=== PATIENT | female | born 2000 | race Caucasian/White ===

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

== ENCOUNTER 2018-11-14 06:42 | Inpatient (IN) ==
[2018-11-14] MEDS ORDERED: LACTATED RINGER'S 1,000 ML IV PRN ×3 (07:31→12:38)
[2018-11-14] MEDS ORDERED: OXYTOCIN 30 UNITS/500 ML BAG IV PRN ×3 (07:31→20:23)
[2018-11-14] MEDS ORDERED: LACTATED RINGER'S 1,000 ML IV SCH (07:45)
[2018-11-14 07:51] LABS: Hematocrit (blood only) 35.6 % (37-47); Hemoglobin 11.7 g/dL (12.0-16.0); Mean Corpuscular Volume 76.6 fL (80-100); Mean Platelet Volume 9.7 fL (7.4-10.4); Platelet Count 218 K/uL (130-400); RDW Coefficient of Variation 14.7 % (11.5-14.5); RDW Standard Deviation 41.2 fL (36.4-46.3); Red Blood Count 4.65 M/uL (4.2-5.4)
[2018-11-14 08:00] LABS: Mean Corpuscular Hgb Conc 32.9 g/dL (32-36)
--- NOTE | 2018-11-14 08:43 | History & Physical Report ---
Date of Service November 14, 2018 Assessment & Plan (1) 38 weeks gestation of : Selena Thurston is a 18 year old, , [place] 38.6 weeks, with EDC of 11/22/18 via LMP on 02/15/18, GBS-, O+, MMR Immune, Varicella immune, VDRL unreactive, with uncomplicated . - Pain management plan is for epidural - will await for epidural prior to rupturing membranes - continue routine labor care - plan for History of Present Illness Chief Complaint: Labor Primary Care Provider: NO PCP Selena Thurston is a 18 year old, , [place] 38.6 weeks, with EDC of 11/22/18 via LMP on 02/15/18, GBS-, O+, MMR Immune, Varicella immune, VDRL unreactive, with uncomplicated . She awoke with pain from contractions last night and came here to the L&D with admission. She denies any recent illness, fever, chills, chest pain, shortness of breath, nausea, vomiting, diarrhea. Her pain management plan is for an epidural. Allergies Allergy/AdvReac Type Severity Reaction Status Date / Time No Known Allergies Allergy Unverified 12/09/10 16:18 Home Medications Home Medications Medication Instructions Recorded Confirmed Type PNV cmb#95-ferrous fumarate-FA 1 tab PO DAILY 11/14/18 11/14/18 History [] Patient History Medical History No known health problems Surgical History History of tonsillectomy Family History Other Hypertension Social History Preferred Language: Iraqi Beliefs That Will Affect Care: None marital status: Single Current Living Situation: Family Feels Safe at Home: Yes Safety Concerns: Feels Safe At This Time Smoking Status: Never smoker Hx Alcohol Use: No Hx Substance Use: No OB History at 38.6 weeks gestation [employer] IN History No history of abnormal paps or STDs. Review of Systems All systems reviewed & are unremarkable except as noted in HPI & below Physical Exam Vital Signs (Past 24 Hours): Last Vital Signs Temp 36.5 C 11/14/18 07:01 Pulse 104 H 11/14/18 07:01 Resp 18 11/14/18 07:01 BP 111/65 11/14/18 07:01 Constitutional: WD/WN, vitals as above cooperative Eyes: + anicteric sclerae and EOM intact bilaterally Neck: normal visual inspection and trachea midline Respiratory: normal respiratory effort, lungs clear to auscultation Cardiovascular: RRR, no murmur, no edema Gastrointestinal (Abdomen): Percussion/Palpation: abdomen nontender gravid uterus Musculoskeletal: Head/Neck/Chest: normocephalic and head atraumatic Skin: no rashes, warm and dry Neurologic: moves all extremities and awake Psychiatric: A+Ox3, euthymic affect Genitourinary: OB Exam Monitor Tracing: + external FHT monitor used, + category I and + normal FHT variability cervix examined by Dr. Coronado attending and noted to be 5cm/90%/-1 with membranes intact. EFM: Baseline 130 w/moderate variability, accels present, no decels Tocodynameter: mild irregular contractions Results & Data Laboratory Results Laboratory Results - last 24 hr 11/14/18 07:38 WBC 15.40 H RBC 4.65 Hgb 11.7 L Hct 35.6 L MCV 76.6 L MCH 25.2 MCHC 32.9 RDW Std Deviation 41.2 RDW Coeff of Jesus Manuel 14.7 H Plt Count 218 MPV 9.7 Medications Administered Lactated Ringer's (Lr) 1,000 mls @ 999 mls/hr IV .Q1H1M PRN PRN Reason: (Pre-Anesthesia) Stop: 12/14/18 07:30 Last Admin: 11/14/18 08:00 Dose: 999 mls/hr Documented by: [id number] Code Status & VTE Plan Code Status full Supervising Physician Co-Signing Physician Notes Patient seen and agree with the above findings and plan
[2018-11-14] MEDS ORDERED: ePHEDrine sulfate 50 MG/ML AMP ONE (08:44)
[2018-11-14] MEDS ORDERED: fentaNYL citrate 100 MCG/2 ML VIAL ONE (08:44)
[2018-11-14] MEDS ORDERED: BUPIVACAINE 0.25% 30 ML VIAL ONE (08:44)
[2018-11-14] MEDS ORDERED: fentaNYL 2MCG/ML ROPIV 1.25MG/ML 100 ML BAG EPI ONE (08:45)
[2018-11-14] MEDS ORDERED: NALOXONE HCL 1 MG in SODIUM CHLORIDE 0.9% 1000ML 1,000 ML IV PRN (09:51)
[2018-11-14] MEDS ORDERED: PROMETHAZINE HCL 6.25 MG in SODIUM CHLORIDE 0.9% 50 ML IV PRN (09:51)
[2018-11-14] MEDS ORDERED: ePHEDrine sulfate 50 MG/ML AMP IV PRN (09:51)
[2018-11-14] MEDS ORDERED: NALBUPHINE HCL INJ 10 MG/ML AMP IV PRN (09:51)
[2018-11-14] MEDS ORDERED: ONDANSETRON INJ 2 MG/ML 2 ML VIAL IV PRN (09:51)
[2018-11-14] MEDS ORDERED: NALOXONE HCL 0.4 MG/1 ML VIAL/CARP IV PRN (09:51)
[2018-11-14] MEDS ORDERED: DiphenhydrAMINE HCL 50 MG/ML VIAL IV PRN (09:51)
[2018-11-14] MEDS ORDERED: fentaNYL 2MCG/ML ROPIV 1.25MG/ML 100 ML BAG EPI PRN (09:51)
--- NOTE | 2018-11-14 09:51 | Anesthesiology Consultation ---
Date of Service November 14, 2018 @ 38.6 Assessment & Plan (1) Encounter for pre-operative examination: Chart Review Chart Review: Patient NOT seen in Pre Admission Testing and Acceptable Risk for Labor Epidural Consults Requested none ASA ASA2 Proposed Anesthesia Anesthesia Type: Labor Epidural Risk / Benefits Reviewed With: PT / POA / Parent / Guardian, Accepts Plan and Informed Consent Obtained NPO Date Last Intake of Fluids: 11/14/18 Time Last Intake of Fluids: 03:30 Date Last Intake of Solids: 11/13/18 Time Last Intake of Solids: 20:00 History Height/Weight Height: 5 ft 3 in Weight: 83.007 kg Allergies Allergy/AdvReac Type Severity Reaction Status Date / Time No Known Allergies Allergy Unverified 12/09/10 16:18 Medications Home Medications Medication Instructions Recorded Confirmed Last Taken PNV cmb#95-ferrous fumarate-FA 1 tab PO DAILY 11/14/18 11/14/18 11/13/18 [] Active Medications Generic Name Dose Route Start Last Admin Trade Name Freq PRN Reason Stop Dose Admin Lactated Ringer's 1,000 mls @ 999 mls/hr 11/14/18 07:31 11/14/18 08:49 Lr IV 12/14/18 07:30 Infused .Q1H1M PRN Infusion (Pre-Anesthesia) Lactated Ringer's 1,000 mls @ 125 mls/hr 11/14/18 07:45 11/14/18 08:49 Lr IV 11/16/18 07:44 125 mls/hr .Q8H PRICILA Administration Past Medical History Medical History No known health problems Past Family History Family History Other Hypertension Past Surgical History Surgical History History of tonsillectomy Social History Smoking Status: Never smoker Hx Alcohol Use: No Hx Substance Use: No Physical Exam Vital Signs Last Vital Signs Temp 36.5 C 11/14/18 07:01 Pulse 126 H 11/14/18 09:49 Resp 18 11/14/18 07:01 BP 112/59 L 11/14/18 09:49 Pulse Ox 98 11/14/18 09:48 ENMT Mouth: no TMJ abnormality Thyromental Distance: > or= 3.5 Finger Breadths Mallampati Class: II Neck normal visual inspection Respiratory normal respiratory effort Cardiovascular Rate/Rhythm: regular rate and regular rhythm Neurologic moves all extremities Psychiatric Orientation: alert Testing Laboratory Results 11/14/18 07:38
--- NOTE | 2018-11-14 10:22 | Obstetrical Progress Note ---
Date of Service November 14, 2018 Assessment & Plan (1) 38 weeks gestation of : good cx change, will see how arom helps labor pattern. fhts categ 1. pt and family aware I am taking over care. Subjective pt now comfortable with epidural. aware i am assuming care. Physical Exam Vital Signs (Past 24 Hours): Last Vital Signs Temp 36.5 C 11/14/18 07:01 Pulse 131 H 11/14/18 10:18 Resp 18 11/14/18 10:00 BP 118/69 11/14/18 10:13 Pulse Ox 93 11/14/18 10:18 Constitutional: WD/WN, vitals as above Genitourinary: OB Exam Abdomen: + estimated weight (7-8#) Manual OB Exam: + cervical dilation 7 cm, + cervical effacement 100%, + station 0 and + amniotic fluid (arom) clear OB Exam Monitor Tracing: + external FHT monitor used (140 moderate variability, ), + external uterine monitor used (q2-3), + category I and + normal FHT variability
[2018-11-14] MEDS ORDERED: ACETAMINOPHEN 325 MG TAB PO STA (12:10)
--- NOTE | 2018-11-14 12:38 | Obstetrical Progress Note ---
Date of Service November 14, 2018 Assessment & Plan (1) 38 weeks gestation of : i think pt needs pitocin to make regular pattern. fhts categ 1 Subjective no complaints. Physical Exam Vital Signs (Past 24 Hours): Last Vital Signs Temp 36.6 C 11/14/18 11:00 Pulse 125 H 11/14/18 12:34 Resp 18 11/14/18 11:00 BP 115/74 11/14/18 12:34 Pulse Ox 98 11/14/18 12:33 Constitutional: WD/WN, vitals as above Genitourinary: Manual OB Exam: + cervical dilation 8 cm, + cervical effacement 100% and + station + 1 OB Exam Monitor Tracing: + external FHT monitor used (130 mod variability ), + external uterine monitor used (not traced well, seems irreg), + category I and + normal FHT variability
[2018-11-14] MEDS ORDERED: miSOPROStol 200 MCG TAB ONE (15:47)
--- NOTE | 2018-11-14 17:17 | Anesthesia Procedure Note ---
Date of Service November 14, 2018 Anesthesia Post Epidural Note Vital Signs Vital Signs: Temp Pulse Resp BP Pulse Ox 37 C 113 H 18 104/65 96 11/14/18 15:00 11/14/18 16:53 11/14/18 15:00 11/14/18 17:07 11/14/18 15:23 Pain Intensity Abdomen: Pain Intensity: 7 Notes Mental Status: alert / awake / arousable Patient Amnestic to Procedure: Yes Nausea / Vomiting: adequately controlled Pain: adequately controlled Airway Patency, RR, SpO2: stable & adequate BP & HR: stable & adequate Hydration State: stable & adequate Neuraxial Anesthesia: was administered and sensory block is resolving Anesthetic Complications: no major complications apparent
--- NOTE | 2018-11-14 19:47 | Delivery Summary ---
DATE OF OPERATION: 11/14/2018 The patient dilated to complete and pushed to deliver a viable female infant, Apgars 8 and 9 via over a small second-degree perineal laceration. Mouth and nose were bulb suctioned at the perineum. The shoulders and body were delivered with ease. The was vigorous and crying at . Cord clamped at 30 seconds of life and to maternal abdomen where the cord was then doubly clamped and cut. Placenta delivered spontaneously and intact 3-vessel cord. Hemostasis achieved with dilute Pitocin and uterine massage. Bladder drained under sterile conditions for 50 mL. With re-exam, cervix and sulci were intact. Lower uterine segment did not seem to be arthur down well and therefore 800 mcg of rectal Cytotec also administered. Laceration repaired in the usual fashion with 3-0 Vicryl. Mother and baby stable in recovery. EBL 300 mL. I attest to the content of the Intraoperative Record and any orders documented therein. Any exceptions are noted below. MTDD
[2018-11-14] MEDS ORDERED: DIPHTHERIA/TETANUS/PERTUSSIS 0.5 ML SYR/VIAL IM ONE (20:23)
[2018-11-14] MEDS ORDERED: miSOPROStol 200 MCG TAB PR ONE (20:23)
[2018-11-14] MEDS ORDERED: SUPERCREAM 0.870% 15 GM JAR EXT PRN (20:23)
[2018-11-14] MEDS ORDERED: OXYTOCIN 20 UNITS in LACTATED RINGER'S 1,000 ML IV SCH (20:23)
[2018-11-14] MEDS ORDERED: OXYCODONE/ACETAMINOPHEN 5mg/325mg TAB PO PRN (20:23)
[2018-11-14] MEDS ORDERED: BENZOCAINE 20% AER SPR 82.5 GM CAN EXT PRN (20:23)
[2018-11-14] MEDS ORDERED: ACETAMINOPHEN 325 MG TAB PO PRN (20:23)
[2018-11-14] MEDS ORDERED: HYDROCORTISONE ACETATE 25 MG SUPP PR PRN (20:23)
[2018-11-14] MEDS ORDERED: DOCUSATE SODIUM 100 MG CAP ONE (20:35)
[2018-11-14] MEDS ORDERED: IBUPROFEN 600 MG TAB PO ONE (20:35)
[2018-11-14] MEDS: DOCUSATE SODIUM 100 MG CAP PO SCH (20:52)
[2018-11-15 06:52] LABS: Hemoglobin 11.4 g/dL (12.0-16.0)
--- NOTE | 2018-11-15 07:09 | Obstetrical Progress Note ---
Date of Service <Jamin Martinez - Last Filed: 11/15/18 07:09> November 15, 2018 Assessment & Plan <Jamin Martinez DO - Last Filed: 11/15/18 07:09> (1) 38 weeks gestation of : Selena Thurston is a 18 year old, , at 38.6 weeks, GBS-, O+, MMR Immune, Varicella immune, VDRL unreactive, with uncomplicated . - PPD #1 - continue routine post- care, encourage ambulation Subjective <Jamin Martinez DO - Last Filed: 11/15/18 07:09> Ambulation: ambulating normally Voiding: no voiding problems Passing Gas:: Yes Diet Tolerance:: regular diet Lochia:: Small Feeding Type:: bottle feeding Selena had no acute events overnight. She reports some mild pelvic discomfort from delivery that is improved with analgesics. She denies headache, fever, chills, chest pain, shortness of breath, nausea, vomiting. Physical Exam <Jamin Martinez DO - Last Filed: 11/15/18 07:09> Vital Signs (Past 24 Hours) Last Vital Signs Temp 36.4 C L 11/15/18 02:45 Pulse 82 11/15/18 02:45 Resp 18 11/15/18 02:45 BP 88/51 L 11/15/18 02:45 Pulse Ox 99 11/14/18 18:32 Constitutional WD/WN, vitals as above cooperative Eyes + anicteric sclerae and EOM intact bilaterally Neck normal visual inspection and trachea midline Respiratory normal respiratory effort, lungs clear to auscultation Cardiovascular RRR, no murmur, no edema Gastrointestinal (Abdomen) Percussion/Palpation: abdomen nontender uterine fundus is firm, non-tender, 2cm inferior to umbilicus Musculoskeletal Head/Neck/Chest: normocephalic and head atraumatic Skin no rashes, warm and dry Neurologic moves all extremities and awake Psychiatric A+Ox3, euthymic affect Results & Data <DO Rashmi Horvath Last Filed: 11/15/18 07:09> Laboratory Results Laboratory Results - last 24 hr 11/14/18 11/15/18 07:38 06:38 WBC 15.40 H RBC 4.65 Hgb 11.7 L 11.4 L Hct 35.6 L 34.0 L MCV 76.6 L MCH 25.2 MCHC 32.9 RDW Std Deviation 41.2 RDW Coeff of Jesus Manuel 14.7 H Plt Count 218 MPV 9.7 Medications Administered Acetaminophen (Tylenol) 650 mg PO Q6H PRN PRN Reason: Pain/ALBERT/Fever Stop: 12/14/18 20:22 Last Admin: 11/14/18 21:53 Dose: 650 mg Documented by: [id number] Benzocaine (Dermoplast Pain Relieving [place]) 1 appln EXT PRN PRN PRN Reason: Perineal Discomfort Stop: 12/14/18 20:22 Last Admin: 11/14/18 21:45 Dose: 82.5 appln Documented by: [id number] Docusate Sodium (Colace) 100 mg PO BID PRICILA Stop: 12/14/18 20:59 Last Admin: 11/14/18 20:52 Dose: Not Given Documented by: [id number] <Diamond Weeks MD, FACOG - Last Filed: 11/15/18 08:30> Co-Signing Physician Notes Resident Physician Supervision Note: I interviewed and examined the patient. Discussed with Dr. Martinez and agree with findings and plan as documented in the note. Any exceptions or clarifications are listed here: Doing well. no complaints. bottle feeding. bleeding ok. routine pp care. Documented By: Diamond Weeks MD, FACOG
[2018-11-15] MEDS: IBUPROFEN 600 MG TAB PO PRN ×4 (07:13→23:27)
[2018-11-15] MEDS: DOCUSATE SODIUM 100 MG CAP PO SCH ×2 (08:24→21:24)
--- NOTE | 2018-11-16 06:36 | Obstetrical Progress Note ---
Date of Service <Jamin Juan - Last Filed: 11/16/18 06:36> November 16, 2018 Assessment & Plan <Jamin Juan - Last Filed: 11/16/18 06:36> (1) Spontaneous vaginal delivery: Selena Thurston is a 18 year old, , at 38.6 weeks, GBS-, O+, MMR Immune, Varicella immune, VDRL unreactive, with uncomplicated . - PPD #2 - continue routine post- care, encourage ambulation until discharge home today - discharge instructions reviewed with patient at bedside, all concerns and questions addressed (2) 38 weeks gestation of : Subjective <Jamin Martinez - Last Filed: 11/16/18 06:36> Ambulation: ambulating normally Voiding: no voiding problems Passing Gas:: Yes Diet Tolerance:: regular diet Lochia:: Small Feeding Type:: bottle feeding Selena states she is doing well this morning and had no acute events overnight. She denies fever, chills, nausea, vomiting, diarrhea, chest pains, shortness of breath, headache. She states she is ready for discharge home today. Physical Exam <Jamin Juan - Last Filed: 11/16/18 06:36> Vital Signs (Past 24 Hours) Last Vital Signs Temp 36.7 C 11/15/18 23:15 Pulse 82 11/15/18 23:15 Resp 16 11/15/18 23:15 BP 112/66 11/15/18 23:15 Pulse Ox 97 11/15/18 23:15 Constitutional WD/WN, vitals as above cooperative Eyes + anicteric sclerae and EOM intact bilaterally Neck normal visual inspection and trachea midline Respiratory normal respiratory effort, lungs clear to auscultation Cardiovascular RRR, no murmur, no edema Gastrointestinal (Abdomen) Percussion/Palpation: abdomen soft; abdomen nontender uterus fundus is firm, non-tender, 3-4 cm below umbilicus Musculoskeletal Head/Neck/Chest: normocephalic and head atraumatic Skin no rashes, warm and dry Neurologic moves all extremities and awake Psychiatric A+Ox3, euthymic affect Results & Data <Jamin Martinez DO - Last Filed: 11/16/18 06:36> Laboratory Results Laboratory Results - last 24 hr 11/15/18 06:38 Hgb 11.4 L Hct 34.0 L Medications Administered Acetaminophen (Tylenol) 650 mg PO Q6H PRN PRN Reason: Pain/ALBERT/Fever Stop: 12/14/18 20:22 Last Admin: 11/14/18 21:53 Dose: 650 mg Documented by: [id number] Benzocaine (Dermoplast Pain Relieving [place]) 1 appln EXT PRN PRN PRN Reason: Perineal Discomfort Stop: 12/14/18 20:22 Last Admin: 11/14/18 21:45 Dose: 82.5 appln Documented by: [id number] Docusate Sodium (Colace) 100 mg PO BID PRICILA Stop: 12/14/18 20:59 Last Admin: 11/15/18 21:24 Dose: 100 mg Documented by: [id number] Admin: 11/15/18 08:24 Dose: 100 mg Documented by: [id number] Admin: 11/14/18 20:52 Dose: Not Given Documented by: [id number] Ibuprofen (Motrin) 600 mg PO Q4H PRN PRN Reason: Pain/ALBERT/Cramping/Fever Stop: 12/14/18 20:22 Last Admin: 11/15/18 23:27 Dose: 600 mg Documented by: [id number] Admin: 11/15/18 18:49 Dose: 600 mg Documented by: [id number] Admin: 11/15/18 11:54 Dose: 600 mg Documented by: [id number] Admin: 11/15/18 07:13 Dose: 600 mg Documented by: [id number] <Kayla Ragland MD - Last Filed: 11/16/18 06:48> Co-Signing Physician Notes I have examined the patient and agree with the resident note above.
[2018-11-16] MEDS: DOCUSATE SODIUM 100 MG CAP PO SCH (07:47)
[2018-11-16] MEDS: IBUPROFEN 600 MG TAB PO PRN (07:47)
== END 2018-11-16 13:00 | disposition home or self-care (01) | DRG 807 ==
LOC: OPB 06:42 → 4S1 06:46 → 4S2 18:24
DX: Z3A.38 38 weeks gestation of pregnancy; O70.1 Second degree perineal laceration during delivery; Z37.0 Single live birth

== ENCOUNTER 2021-05-18 09:03 | Inpatient (IN) ==
[2021-05-18] MEDS ORDERED: OXYTOCIN 30 UNITS/500 ML BAG IV PRN ×2 (10:22→14:05)
[2021-05-18] MEDS ORDERED: SODIUM CHLORIDE 0.9% INJ 10 ML VIAL ONE (10:42)
[2021-05-18] MEDS ORDERED: BUPIVACAINE 0.25% 30 ML VIAL ONE (10:42)
[2021-05-18] MEDS ORDERED: ePHEDrine sulfate 50 MG/ML AMP ONE (10:42)
[2021-05-18] MEDS ORDERED: fentaNYL citrate 100 MCG/2 ML VIAL ONE (10:42)
[2021-05-18] MEDS ORDERED: fentaNYL 2MCG/ML ROPIVACAINE 1.25MG/ML 100 ML BAG EPI ONE (10:43)
[2021-05-18] MEDS: LACTATED RINGER'S 1,000 ML IV PRN ×2 (10:45→11:36)
[2021-05-18 10:47] LABS: Hematocrit (blood only) 35.9 % (37-47); Hemoglobin 12.2 g/dL (12.0-16.0); Mean Corpuscular Hemoglobin 27.9 pg (25-34); Mean Platelet Volume 10.5 fL (7.4-10.4); Platelet Count 178 K/uL (130-400); RDW Coefficient of Variation 13.7 % (11.5-14.5); RDW Standard Deviation 41.5 fL (36.4-46.3); Red Blood Count 4.38 M/uL (4.2-5.4); White Blood Count 15.42 K/uL (4.8-10.8)
[2021-05-18] MEDS ORDERED: fentaNYL 2MCG/ML ROPIVACAINE 1.25MG/ML 100 ML BAG EPI PRN (11:06)
[2021-05-18] MEDS ORDERED: NALOXONE HCL 1 MG in SODIUM CHLORIDE 0.9% 1000ML 1,000 ML IV PRN (11:06)
[2021-05-18] MEDS ORDERED: ONDANSETRON INJ 2 MG/ML 2 ML VIAL IV PRN (11:06)
[2021-05-18] MEDS ORDERED: NALOXONE HCL 0.4 MG/1 ML VIAL/CARP IV PRN (11:06)
[2021-05-18] MEDS ORDERED: NALBUPHINE HCL INJ 10 MG/ML AMP IV PRN (11:06)
[2021-05-18] MEDS ORDERED: diphenhydrAMINE 50 MG/ML VIAL IV PRN (11:06)
[2021-05-18] MEDS ORDERED: ePHEDrine sulfate 50 MG/ML AMP IV PRN (11:06)
--- NOTE | 2021-05-18 11:07 | Anesthesiology Consultation ---
Date of Service May 18, 2021 Assessment & Plan Chart Review Chart Review: Patient NOT seen in Pre Admission Testing and Acceptable Risk for Labor Epidural Consults Requested none ASA ASA2 Proposed Anesthesia Anesthesia Type: Labor Epidural and CSE Risk / Benefits Reviewed With: PT / POA / Parent / Guardian, Accepts Plan and Informed Consent Obtained History Height/Weight Height: 5 ft 3 in Weight: 78.7 kg Allergies Allergy/AdvReac Type Severity Reaction Status Date / Time No Known Allergies Allergy Unverified 12/09/10 16:18 Medications Home Medications Medication Instructions Recorded Confirmed Last Taken vit no.95-ferrous 1 tab PO DAILY 11/14/18 11/14/18 11/13/18 fumarate 28 mg-folic acid 800 mcg tablet () Active Medications Generic Name Dose Route Start Last Admin Trade Name Freq PRN Reason Stop Dose Admin Lactated Ringer's 1,000 mls @ 125 mls/hr 05/18/21 10:22 05/18/21 10:50 Lr IV 05/20/21 10: 999 mls/hr .Q8H PRN Infusion L&D Protocol Protocol NPO Date Last Intake of Fluids: 05/18/21 Time Last Intake of Fluids: 09:00 Date Last Intake of Solids: 05/17/21 Time Last Intake of Solids: 22:00 Past Medical History Medical History No known health problems Exercise / Class Metabolic Activity II 4-5 Yardwork/Stairs/Walk up hill Past Family History Family History (Updated 05/18/21 @ 09:24 by Chelsy Correia RN) Father Hypertension Past Surgical History Surgical History History of tonsillectomy Past Anesthesia History No Hx of Anesthesia Complications and No Family Hx of Anesthesia Complications History of PONV No Hx of PONV and No Hx of Motion Sickness Social History Smoking Status: Never smoker Hx Alcohol Use: No Hx Substance Use: No Review of Systems no chest pain or sob Physical Exam Vital Signs Last Vital Signs Temp 36.8 C 05/18/21 09:08 Pulse 92 H 05/18/21 11:05 Resp 18 05/18/21 09:08 BP 106/63 05/18/21 11:03 Pulse Ox 99 05/18/21 11:05 ENMT Mouth: no TMJ abnormality Thyromental Distance: > or= 3.5 Finger Breadths Mallampati Class: II Neck normal visual inspection Respiratory normal respiratory effort Auscultation: lungs clear to auscultation bilaterally Cardiovascular Rate/Rhythm: regular rate and regular rhythm Musculoskeletal Spine: normal cervical ROM Neurologic moves all extremities Psychiatric Orientation: alert and oriented x 3 Testing Laboratory Results 05/18/21 10:35
--- NOTE | 2021-05-18 12:48 | Labor Progress Brief Note ---
Date of Service May 18, 2021 Assessment & Plan (1) Spontaneous vaginal delivery: Plan: Pt doing well Epidural analgesia on board FHR; CAT1 Ctx 2-4min VE 9/100/-1 with bulging membranes AROM with Amnio hook- moderate meconium Admission and Anticipated Discharge Date Admission Date: May 18, 2021 Results & Data ([facility]) Vital Signs (Past 12 Hours) Vital Signs Temp Pulse Resp BP Pulse Ox Pulse Ox 05/18/21 12:44 98 H 94/54 L 05/18/21 12:43 99 H 92 05/18/21 12:41 110 H 100 05/18/21 12:36 88 99 05/18/21 12:34 78 92 05/18/21 12:31 73 98 05/18/21 12:26 79 100 05/18/21 12:24 81 100/61 05/18/21 12:23 74 97/53 L 05/18/21 12:21 86 100 05/18/21 12:16 84 98 05/18/21 12:14 84 121/55 L 05/18/21 12:11 89 99 05/18/21 12:06 86 100 05/18/21 12:03 105 H 101/53 L 05/18/21 12:01 92 H 99 05/18/21 12:00 18 05/18/21 11:56 97 H 99 05/18/21 11:54 89 100/56 L 05/18/21 11:51 89 99 05/18/21 11:46 95 H 98 05/18/21 11:45 94 H 97/48 L 05/18/21 11:41 95 H 98 05/18/21 11:36 96 H 99 05/18/21 11:33 107 H 101/53 L 05/18/21 11:31 95 H 98 05/18/21 11:30 99 H 18 99/51 L 05/18/21 11:27 110 H 97/60 L 05/18/21 11:26 112 H 98 05/18/21 11:24 96 H 94/52 L 05/18/21 11:21 109 H 96/54 L 99 05/18/21 11:18 94 H 114/56 L 05/18/21 11:15 95 H 110/67 99 05/18/21 11:14 119 H 92 05/18/21 11:12 118 H 117/77 05/18/21 11:10 107 H 99 05/18/21 11:09 107 H 114/80 05/18/21 11:06 98 H 104/70 05/18/21 11:05 92 H 99 05/18/21 11:03 95 H 106/63 89 L 05/18/21 11:00 36.5 C 111 H 18 118/83 98 05/18/21 10:55 103 H 98 05/18/21 10:50 81 99 05/18/21 10:30 18 98 05/18/21 10:00 18 05/18/21 09:30 18 05/18/21 09:12 88 115/77 05/18/21 09:08 36.8 C 88 18 115/77 05/18/21 09:03 36.8 C 88 18 115/77
[2021-05-18] MEDS ORDERED: LIDOCAINE 1% LOCAL 20 ML VIAL ONE (13:53)
[2021-05-18] MEDS ORDERED: miSOPROStoL 200 MCG TAB ONE (13:59)
[2021-05-18] MEDS ORDERED: HYDROCORTISONE ACETATE 25 MG SUPP PR PRN (14:05)
[2021-05-18] MEDS ORDERED: ACETAMINOPHEN 325 MG TAB PO PRN (14:05)
[2021-05-18] MEDS ORDERED: BENZOCAINE 20% AER SPR 82.5 GM CAN EXT PRN (14:05)
[2021-05-18] MEDS ORDERED: miSOPROStoL 200 MCG TAB PR ONE (14:05)
[2021-05-18] MEDS ORDERED: DIPHTHERIA/TETANUS/PERTUSSIS 0.5 ML SYR/VIAL IM ONE (14:05)
[2021-05-18] MEDS ORDERED: SUPERCREAM 0.870% 15 GM JAR EXT PRN (14:05)
[2021-05-18] MEDS ORDERED: bisacodyL 10 MG SUPP PR PRN (14:05)
--- NOTE | 2021-05-18 14:55 | Anesthesia Procedure Note ---
Date of Service May 18, 2021 Anesthesia Post Epidural Note Vital Signs Vital Signs: Temp Pulse Resp BP Pulse Ox 36.5 C 96 H 18 94/52 L 99 05/18/21 11:00 05/18/21 14:40 05/18/21 12:00 05/18/21 14:40 05/18/21 14:11 Pain Intensity Abdomen: Pain Intensity: 0 Notes Mental Status: alert / awake / arousable and participated in evaluation Nausea / Vomiting: adequately controlled Pain: adequately controlled Airway Patency, RR, SpO2: stable & adequate BP & HR: stable & adequate Hydration State: stable & adequate Neuraxial Anesthesia: was administered and sensory block is resolving Anesthetic Complications: no major complications apparent and Pt Satisfied with anesthetic care Epidural: Removed without complications and With tip intact
--- NOTE | 2021-05-18 14:58 | Delivery Summary ---
DATE OF SERVICE: 05/18/2021 DELIVERY NOTE: The patient delivered a live male in left occiput anterior presentation. Ther e was no nuchal cord. Infant was delivered and placed on mother's abdomen and delayed cord clamp per formed after 1 minute. was noted to have meconium. Infant was handed over to the waiting ped iatric team. Cord blood was obtained as well as cord gases. Placenta was spontaneously delivered. Inspection of the perineum shows a periurethral laceration, which was repaired with 3-0 Vicryl. Ther e were no other tears or lacerations in the vagina or perineum. Estimated blood loss 450 mL. There was good hemostasis. All instruments were removed from the vagina and accounted for x2 including sponges, needles, and retractors. Infant is with the pediatric team. Mother is stable in recovery. Job ID: [id number]
[2021-05-18] MEDS: IBUPROFEN 600 MG TAB PO PRN ×2 (17:24→23:32)
[2021-05-18] MEDS: DOCUSATE SODIUM 100 MG CAP PO SCH (21:36)
[2021-05-19 06:05] LABS: Hematocrit (blood only) 31.6 % (37-47); Hemoglobin 10.7 g/dL (12.0-16.0); Mean Corpuscular Hgb Conc 33.9 g/dL (32-36); Mean Corpuscular Volume 82.7 fL (80-100); Mean Platelet Volume 10.4 fL (7.4-10.4); Platelet Count 171 K/uL (130-400); RDW Coefficient of Variation 13.8 % (11.5-14.5); RDW Standard Deviation 41.8 fL (36.4-46.3); Red Blood Count 3.82 M/uL (4.2-5.4)
[2021-05-19] MEDS ORDERED: PRENATAL VITAMIN 1 TAB PO SCH (08:00)
[2021-05-19] MEDS ORDERED: FERROUS SULFATE 325 MG TAB PO SCH (08:00)
[2021-05-19] MEDS: IBUPROFEN 600 MG TAB PO PRN (09:19)
[2021-05-19] MEDS: DOCUSATE SODIUM 100 MG CAP PO SCH (09:19)
--- NOTE | 2021-05-19 09:35 | Obstetrical Progress Note ---
Date of Service May 19, 2021 Subjective Ambulation: ambulating normally Voiding: no voiding problems Passing Gas:: Yes Diet Tolerance:: regular diet Lochia:: Small Feeding Type:: bottle feeding Current Pain Level(1-10): 0 doing well plans for d/c today Physical Exam Constitutional WD/WN, vitals as above comfortable abdomen soft and non-tender fundus firm no edema negative Liu''s for d/c Results & Data ([facility]) Vital Signs (Past 12 Hours) Vital Signs Temp Pulse Resp BP 05/19/21 05:30 36.7 C 88 18 100/69 05/18/21 23:25 36.9 C 89 20 91/61 L Laboratory Results 05/18/21 05/18/21 05/18/21 10:00 10:00 10:35 WBC 15.42 H RBC 4.38 Hgb 12.2 Hct 35.9 L MCV 82.0 MCH 27.9 MCHC 34.0 RDW Std Deviation 41.5 RDW Coeff of Jesus Manuel 13.7 Plt Count 178 MPV 10.5 H COVID-19 Eval [facility] SARS-CoV-2, RNA, NAAT NEGATIVE 05/19/21 05:47 WBC 15.60 H RBC 3.82 L Hgb 10.7 L Hct 31.6 L MCV 82.7 MCH 28.0 MCHC 33.9 RDW Std Deviation 41.8 RDW Coeff of Jesus Manuel 13.8 Plt Count 171 MPV 10.4 COVID-19 Eval Order SARS-CoV-2, RNA, NAAT
[2021-05-19] MEDS ORDERED: bisacodyL 5 MG TABEC PO SCH (20:00)
== END 2021-05-19 14:43 | disposition home or self-care (01) | DRG 807 ==
LOC: OPB 09:03 → 4S1 09:07 → 4S2 16:04

== ENCOUNTER 2022-10-26 08:56 | Inpatient (IN) ==
[2022-10-26] MEDS ORDERED: LIDOCAINE 1% LOCAL 20 ML VIAL INFIL PRN (09:07)
[2022-10-26] MEDS ORDERED: OXYTOCIN 30 UNITS/500 ML BAG IV PRN ×2 (09:07→12:09)
[2022-10-26] MEDS ORDERED: LACTATED RINGER'S 1,000 ML IV PRN (09:07)
--- NOTE | 2022-10-26 09:12 | History & Physical Report ---
Date of Service October 26, 2022 Assessment & Plan (1) Supervision of normal intrauterine in multigravida: Plan: Admit for labor. EFM/toco. Labs. Thinking she'd like an epidural. History of Present Illness Chief Complaint: labor Primary Care Provider: DEBRA Cao 22yo @ 40 0/7, presents with contractions. No ROM, no vaginal bleeding. + movement. Was seen yesterday for decr movement and nausea/vomiting. Feeling much better today. Allergies Allergy/AdvReac Type Severity Reaction Status Date / Time No Known Allergies Allergy Verified 10/25/22 14:03 Home Medications Medication Instructions Recorded Confirmed Type vit no.95-ferrous 1 tab PO DAILY 11/14/18 10/21/22 History fumarate 28 mg-folic acid 800 mcg tablet () ondansetron HCl 4 mg tablet 4 mg PO Q6H PRN nausea and 10/25/22 Rx vomiting #7 tabs Patient History Medical History Febrile illness Febrile illness H/O vaginal delivery No known health problems Surgical History History of arthroscopic knee surgery History of tonsillectomy [place] teeth extracted Family History Father Hypertension Social History Smoking Status: Never smoker Hx Alcohol Use: No Hx Substance Use: No Preferred Language: Belarusian Communication Ability: Effective Prescription Benefit Specialist Required: No Beliefs That Will Affect Care: None marital status: Single marital status details: FOB: Velasquez (32) [phone] Current Living Situation: Significant Other Current Living Situation Comment: LIVES WITH S/O current occupational status: employed and unemployed Feels Safe at Home: Yes Assistive Devices: None Review of Systems All systems reviewed & are unremarkable except as noted in HPI & below Physical Exam Physical Exam: FHT Cat 1 [place] irreg SVE 6-7/100/+1 Constitutional: WD/WN, vitals as above Respiratory: normal respiratory effort, lungs clear to auscultation no respiratory distress Cardiovascular: Rate/Rhythm: regular rate and regular rhythm Gastrointestinal (Abdomen): Inspection/Auscultation: abdomen normal to inspection Percussion/Palpation: abdomen soft; abdomen nontender Gravid. No s/s chorio or abruption. Skin: no rashes, warm and dry Psychiatric: A+Ox3, euthymic affect Results & Data ([facility]) Vital Signs (Past 12 Hours) Vital Signs Pulse BP 10/26/22 09:03 90 110/66 Coding Level of Care Code None Diagnoses Supervision of normal intrauterine in multigravida Z34.80
[2022-10-26] MEDS ORDERED: ePHEDrine sulfate 50 MG/ML AMP ONE (09:22)
[2022-10-26] MEDS ORDERED: fentaNYL citrate 100 MCG/2 ML VIAL ONE (09:22)
[2022-10-26] MEDS ORDERED: SODIUM CHLORIDE 0.9% INJ 10 ML VIAL ONE (09:22)
[2022-10-26] MEDS ORDERED: fentaNYL 2MCG/ML ROPIVACAINE 1.25MG/ML 100 ML BAG EPI ONE (09:23)
[2022-10-26] MEDS ORDERED: LIDOCAINE 2%/EPINEPHRINE 1:200,000 20 ML SDV ONE (09:23)
[2022-10-26] MEDS ORDERED: BUPIVACAINE 0.25% 30 ML VIAL ONE (09:23)
[2022-10-26 09:34] LABS: Hematocrit (blood only) 33.7 % (37.0-47.0); Hemoglobin 10.8 g/dl (12.0-16.0); Mean Corpuscular Hemoglobin 24.8 pg (25.0-34.0); Mean Corpuscular Volume 77.3 fL (80.0-100.0); Mean Platelet Volume 10.7 fL (9.4-12.4); Platelet Count 199 K/uL (130-400); RDW Coefficient of Variation 14.7 % (11.5-14.5); RDW Standard Deviation 40.9 fL (36.4-46.3); Red Blood Count 4.36 M/uL (4.20-5.40); White Blood Count 9.55 K/ul (4.8-10.8)
--- NOTE | 2022-10-26 10:06 | Anesthesiology Consultation ---
Date of Service October 26, 2022 Assessment & Plan Chart Review Chart Review: Acceptable Risk for Labor Epidural Consults Requested none ASA ASA2 Proposed Anesthesia Anesthesia Type: Labor Epidural Risk / Benefits Reviewed With: PT / POA / Parent / Guardian, Accepts Plan and Informed Consent Obtained History Allergies Allergy/AdvReac Type Severity Reaction Status Date / Time No Known Allergies Allergy Verified 10/25/22 14:03 Medications Home Medications Medication Instructions Recorded Confirmed Last Taken vit no.95-ferrous 1 tab PO DAILY 11/14/18 10/21/22 11/13/18 fumarate 28 mg-folic acid 800 mcg tablet () ondansetron HCl 4 mg tablet 4 mg PO Q6H PRN nausea and 10/25/22 Unknown vomiting #7 tabs Active Medications Generic Name Dose Route Start Last Admin Trade Name Freq PRN Reason Stop Dose Admin Lactated Ringer's 1,000 mls @ 125 mls/hr 10/26/22 09:07 10/26/22 09:31 Lr IV 10/28/22 09:06 999 mls/hr .Q8H PRN Administration L&D Protocol Protocol Past Medical History Medical History Febrile illness Febrile illness H/O vaginal delivery No known health problems Exercise / Class Metabolic Activity II 4-5 Yardwork/Stairs/Walk up hill Past Family History Family History Father Hypertension Past Surgical History Surgical History History of arthroscopic knee surgery History of tonsillectomy [place] teeth extracted Past Anesthesia History No Hx of Anesthesia Complications and No Family Hx of Anesthesia Complications History of PONV No Hx of PONV and No Hx of Motion Sickness Social History Smoking Status: Never smoker Hx Alcohol Use: No Hx Substance Use: No substance use type: does not use Physical Exam Vital Signs Last Vital Signs Pulse 98 H 10/26/22 10:03 BP 110/66 10/26/22 09:03 Pulse Ox 99 10/26/22 10:03 ENMT Mouth: no dentition abnormality Thyromental Distance: > or= 3.5 Finger Breadths Mallampati Class: II Neck normal visual inspection Respiratory normal respiratory effort Auscultation: lungs clear to auscultation bilaterally Cardiovascular Rate/Rhythm: regular rate and regular rhythm Testing Laboratory Results 10/26/22 09:19
[2022-10-26] MEDS ORDERED: ePHEDrine sulfate 50 MG/ML AMP IV PRN (10:23)
[2022-10-26] MEDS ORDERED: fentaNYL 2MCG/ML ROPIVACAINE 1.25MG/ML 100 ML BAG EPI PRN (10:23)
[2022-10-26] MEDS ORDERED: diphenhydrAMINE 50 MG/ML VIAL IV PRN (10:23)
[2022-10-26] MEDS ORDERED: NALOXONE HCL 0.4 MG/1 ML VIAL/CARP IV PRN (10:23)
[2022-10-26] MEDS ORDERED: NALBUPHINE HCL INJ 10 MG/ML AMP IV PRN (10:23)
[2022-10-26] MEDS ORDERED: NALOXONE HCL 1 MG in SODIUM CHLORIDE 0.9% 1000ML 1,000 ML IV PRN (10:23)
[2022-10-26] MEDS ORDERED: ONDANSETRON INJ 2 MG/ML 2 ML VIAL IV PRN (10:23)
[2022-10-26] MEDS ORDERED: CALCIUM CARBONATE 500 MG CHEWABLE TAB ONE (10:59)
[2022-10-26] MEDS ORDERED: CALCIUM CARBONATE 500 MG CHEWABLE TAB PO PRN (10:59)
[2022-10-26] MEDS ORDERED: ONDANSETRON INJ 2 MG/ML 2 ML VIAL IV SCH (11:00)
--- NOTE | 2022-10-26 11:01 | Labor Progress Brief Note ---
Date of Service October 26, 2022 Subjective Uncomfortable with epidural. FHT Cat 1 [place] irreg SVE 8/100/+1 AROM clear fluid. TUMS for heartburn. Anticipate . Assessment & Plan Admission and Anticipated Discharge Date Admission Date: October 26, 2022 Results & Data Vital Signs (Past 12 Hours) Vital Signs Pulse BP Pulse Ox 10/26/22 10:58 118 H 98 10/26/22 10:53 95 H 98 10/26/22 10:50 96 H 121/61 10/26/22 10:48 99 H 99 10/26/22 10:47 104 H 105/61 10/26/22 10:44 98 H 108/63 10/26/22 10:43 99 H 99 10/26/22 10:42 101 H 108/60 10/26/22 10:39 107 H 96/70 L 10/26/22 10:38 99 H 98 10/26/22 10:35 97 H 103/68 10/26/22 10:33 103 H 99 10/26/22 10:32 108 H 100/58 L 10/26/22 10:29 100 H 103/58 L 10/26/22 10:28 102 H 98 10/26/22 10:26 111 H 99/57 L 10/26/22 10:24 108 H 95/51 L 10/26/22 10:23 94 H 97 10/26/22 10:22 97 H 124/54 L 10/26/22 10:18 90 99/59 L 98 10/26/22 10:13 102 H 98 10/26/22 10:11 115 H 89 L 10/26/22 10:08 108 H 96 10/26/22 10:03 98 H 99 10/26/22 09:58 95 H 97 10/26/22 09:53 95 H 97 10/26/22 09:47 102 H 97 10/26/22 09:42 94 10/26/22 09:42 99 H 10/26/22 09:42 91 H 97 10/26/22 09:03 90 110/66 Coding Level of Care Code None Diagnoses
--- NOTE | 2022-10-26 11:30 | Delivery Summary ---
Vaginal Delivery Summary Date of Service October 26, [address] [facility] Vaginal Delivery Summary: Pre-delivery diagnoses: 22yo @ 40 0/7 Post-delivery diagnoses: same Procedure: spontaneous vaginal delivery Surgeon: Hannah Walsh DO Complications: none Findings: Viable male . Apgars: 8/9. Weight pending, please see nursery records. Estimated blood loss: 300ml Description of delivery: The patient progressed to complete with epidural anesthesia. She then began to push. She spontaneously vaginally delivered a viable from the cephalic presentation. The head delivered in CHAVEZ position. The anterior shoulder delivered, followed by the posterior shoulder, followed by the body. The baby was placed on mother's abdomen and a spontaneous cry was heard. Delayed cord clamping was employed, and the cord was doubly clamped and cut. Cord blood was obtained. The placenta was delivered spontaneously intact with a 3-vessel cord. The uterus and vagina were swept of clots and debris. IV pitocin was given. The uterus became firm. The cervix, vagina, and perineum were inspected and no lacerations were noted. Excellent hemostasis was observed. The mother and baby are recovering in stable and good condition in the room. Sponge and instrument counts were correct x 2. Hannah Walsh DO [facility] Vaginal Delivery Charge Vaginal Delivery Codes: 90833 global code for the antepartum, delivery, and post- Delivery Type Details: [facility]
[2022-10-26] MEDS ORDERED: ACETAMINOPHEN 325 MG TAB PO PRN (12:09)
[2022-10-26] MEDS ORDERED: DIPHTHERIA/TETANUS/PERTUSSIS 0.5mL SYR/VIAL (Age 7+yrs) IM ONE (12:09)
[2022-10-26] MEDS ORDERED: BENZOCAINE 20% AER SPR 82.5 GM CAN EXT PRN (12:09)
[2022-10-26] MEDS ORDERED: oxyCODONE/ACETAMINOPHEN 5mg/325mg TAB PO PRN (12:09)
[2022-10-26] MEDS ORDERED: bisacodyL 10 MG SUPP PR PRN (12:09)
[2022-10-26] MEDS ORDERED: HYDROCORTISONE ACETATE 25 MG SUPP PR PRN (12:09)
--- NOTE | 2022-10-26 12:51 | Anesthesia Procedure Note ---
Date of Service October 26, 2022 Anesthesia Post Epidural Note Vital Signs Vital Signs: Pulse BP Pulse Ox 77 102/59 L 97 10/26/22 12:37 10/26/22 12:37 10/26/22 11:23 Notes Mental Status: alert / awake / arousable and participated in evaluation Nausea / Vomiting: adequately controlled Pain: adequately controlled Airway Patency, RR, SpO2: stable & adequate BP & HR: stable & adequate Hydration State: stable & adequate Neuraxial Anesthesia: was administered and sensory block is resolving Anesthetic Complications: no major complications apparent and Pt Satisfied with anesthetic care Epidural: Removed without complications and With tip intact
[2022-10-26] MEDS: IBUPROFEN 600 MG TAB PO PRN (21:22)
[2022-10-26] MEDS: DOCUSATE SODIUM 100 MG CAP PO SCH (21:22)
[2022-10-27] MEDS: IBUPROFEN 600 MG TAB PO PRN ×2 (03:31→07:35)
[2022-10-27 07:27] LABS: Hematocrit (blood only) 33.2 % (37.0-47.0); Hemoglobin 10.5 g/dl (12.0-16.0)
[2022-10-27] MEDS: DOCUSATE SODIUM 100 MG CAP PO SCH (07:35)
[2022-10-27] MEDS ORDERED: PRENATAL VITAMIN 1 TAB PO SCH (08:00)
--- NOTE | 2022-10-27 09:00 | Obstetrical Progress Note ---
Date of Service October 27, 2022 Assessment & Plan (1) Normal course: PPD#1 doing well, breast and bottle feeding. Would like to go home today. Reviewed instructions, followup 6w in office. Subjective Ambulation: ambulating normally Voiding: no voiding problems Diet Tolerance:: regular diet Lochia:: Moderate Review of Systems All systems reviewed & are unremarkable except as noted in HPI & below Physical Exam Constitutional WD/WN, vitals as above no acute distress Respiratory normal respiratory effort Cardiovascular Rate/Rhythm: regular rate and regular rhythm Gastrointestinal (Abdomen) Inspection/Auscultation: abdomen normal to inspection; abdomen not distended Percussion/Palpation: abdomen soft Genitourinary OB Exam Abdomen: + fundal height Fundus: + firm; not tender Results & Data Vital Signs (Past 12 Hours) Vital Signs Temp Pulse Resp BP Pulse Ox O2 Del Method 10/27/22 07:40 36.3 C L 16 106/67 98 Room Air 10/27/22 03:30 36.5 C 84 14 88/58 L 98 Room Air 10/26/22 23:35 36.7 C 96 H 17 87/53 L 98 Room Air 10/26/22 21:25 36.5 C 92 H 16 101/65 98 Room Air
[2022-10-27] MEDS ORDERED: bisacodyL 5 MG TABEC PO SCH (20:00)
== END 2022-10-27 14:30 | disposition home or self-care (01) | DRG 807 ==
LOC: OPB 08:56 → 4S1 08:57 → 4E2 17:15